=== PATIENT | male | born 1975 | race Two or more races ===

== ENCOUNTER 2020-03-14 21:59 | Emergency (ER) | payer MEDICAID ==
[~2020-03-14] VITALS: Ht 180.3 cm; Wt 91.0 kg
[2020-03-14] MEDS ORDERED: HYDROCODONE/ACETAMINOPHEN 5/325MG TABLET PO ONE (23:15)
[2020-03-14] MEDS ORDERED: TETANUS, DIPHTHERIA, PERTUSSIS VAC/PF 0.5ML (>7YR OLD) IM ONE (23:15)
[2020-03-14] MEDS ORDERED: LIDOCAINE HCL/PF 1% 10 MG/ML 5ML VIAL IJ ONE (23:15)
[2020-03-15] MEDS ORDERED: LIDOCAINE HCL/PF 1% 10 MG/ML 5ML VIAL IJ ONE (00:45)
[2020-03-15] MEDS ORDERED: KETOROLAC 30MG/ML VIAL IM ONE (03:30)
[2020-03-15 03:41] VITALS: BP 160/90
== END 2020-03-15 03:43 | disposition home or self-care (01) ==
LOC: ER 21:59
DX: S01.01XA Laceration without foreign body of scalp, initial encounter (principal); S63.281A Dislocation of proximal interphalangeal joint of left index finger, initial encounter; W01.198A Fall on same level from slipping, tripping and stumbling with subsequent striking against other object, initial encounter; Y93.89 Activity, other specified; Y92.89 Other specified places as the place of occurrence of the external cause; Z23 Encounter for immunization
CPT/HCPCS: 12001; 26770; 70450; 73080; 73090; 73130; 73140; 90471; 90715; 96372; 99284; J1885; J3490